=== PATIENT | female | born 1990 | race Caucasian/White ===

== ENCOUNTER 2019-02-05 19:40 | Emergency (ER) | payer SELFPAY ==
[2019-02-05] MEDS ORDERED: NA CHLORIDE 0.9% 1,000 ML ONE (20:42)
[2019-02-05 20:44] LABS: Absolute Lymphocytes (CBC) 3.5 K/uL (0.7-4.9); Basophils % 0.7 % (0-1.3); Hematocrit 43.3 % (36.0-45.0); MPV 7.4 fL (7.6-11.3); RBC Red Blood Cell Count 4.74 M/uL (3.86-4.86)
[2019-02-05] MEDS ORDERED: ONDANSETRON 4 MG/2 ML VIAL ONE (20:47)
[2019-02-05] MEDS ORDERED: FENTANYL CITR 100 MCG/2 ML ONE (20:47)
[2019-02-05 20:58] LABS: Potassium 3.8 mmol/L (3.5-5.1)
[2019-02-05] MEDS ORDERED: KETOROLAC 30 MG/ML INJ ONE (21:32)
[2019-02-05] MEDS ORDERED: LIDOCAINE VISCOUS 2% SOLN 15 ML UDC ONE (22:51)
[2019-02-05] MEDS ORDERED: dexAMETHasone 10 MG/ML VIAL ONE (22:51)
[2019-02-05] MEDS ORDERED: PANTOPRAZOLE 40 MG INJ ONE (22:51)
[2019-02-05] MEDS ORDERED: MAGNE/ALUM HYDROXD 30 ML UCUP ONE (22:51)
--- NOTE | 2019-02-05 22:51 | EDPHYS ---
Physician Documentation [facility] Name: Sallie Milner Age: 28 yrs Sex: Female : 1990 Arrival Date: 02/05/2019 Time: 19:41 Bed 7 Private MD: ED Physician Hari Rodriguez HPI: 02/05 20:05 This 28 yrs old Female presents to ER via Ambulatory with complaints of Sore cp Throat. 20:05 The patient presents with sore throat, dysphagia, of both solids and liquids. cp 20:05 The patient describes throat pain as constant. cp 20:05 Onset: The symptoms/episode began/occurred intermittent for past several months, worse cp over past 2 days. Patient reports completing several prescriptions for antibiotics. Patient reports she was diagnosed with Romo's esophagus in the past, but has not been able to f/u due to lack of insurance. 20:05 Associated signs and symptoms: Pertinent positives: dysphagia, Sore throat Pertinent cp negatives chest pain, cough, earache, fever, vomiting. 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 - Social history:: Smoking status: Patient uses tobacco products, smokes one pack cigarettes per day. - Ebola Screening: : No symptoms or risks identified at this time. ROS: 20:10 Constitutional: Negative for body aches, chills, fever, poor PO intake, weight loss. cp 20:10 Eyes: Negative for injury, pain, redness, and discharge. cp 20:10 ENT: Positive for difficulty swallowing, sore throat, Negative for drainage from ear(s), ear pain, difficulty handling secretions, hoarseness. 20:10 Neck: Negative for stiffness, swollen nodes. 20:10 Cardiovascular: Negative for chest pain, palpitations. 20:10 Respiratory: Negative for cough, shortness of breath, wheezing. 20:10 Abdomen/GI: Negative for abdominal pain, nausea, vomiting, and diarrhea. 20:10 Skin: Negative for rash. 20:10 Neuro: Negative for altered mental status, headache, weakness. 20:10 All other systems are negative. Exam: 20:20 Constitutional: The patient appears in no acute distress, alert, awake, non-toxic, well cp developed, well nourished. 20:20 Head/Face: Normocephalic, atraumatic. cp 20:20 Eyes: Periorbital structures: appear normal, Conjunctiva: normal, no exudate, no injection, Sclera: no appreciated abnormality, Lids and lashes: appear normal, bilaterally. 20:20 ENT: External ear(s): are unremarkable, Ear canal(s): are normal, clear, TM's: dullness, bilaterally, Nose: is normal, Mouth: Lips: moist, Oral mucosa: moist, Tongue: is normal, abscess, is not appreciated, Posterior pharynx: Airway: no evidence of obstruction, patent, Tonsils: with erythema, no enlargement, no exudate, Uvula: midline, swelling, is not appreciated, erythema, that is mild, exudate, is not appreciated. 20:20 Neck: ROM/movement: is normal, is supple, without pain, no range of motions limitations, no meningismus, no nuchal rigidity. 20:20 Chest/axilla: Inspection: normal, Palpation: is normal, no crepitus, no tenderness. 20:20 Cardiovascular: Rate: normal, Rhythm: regular, JVD: is not appreciated. 20:20 Respiratory: the patient does not display signs of respiratory distress, Respirations: normal, no use of accessory muscles, no retractions, no splinting, no tachypnea, labored breathing, is not present, Breath sounds: are clear throughout, no decreased breath sounds, no stridor, no wheezing. 20:20 Abdomen/GI: Inspection: abdomen appears normal, Bowel sounds: active, all quadrants, Palpation: abdomen is soft and non-tender, in all quadrants. 20:20 Skin: no rash present. Vital Signs: 20:20 BP 155 / 109; Pulse 87; Resp 18; Temp 98.3; Pulse Ox 97% on R/A; Weight 74.84 kg; ea Height 5 ft. (152.40 cm); Pain 9/10; 21:13 BP 129 / 112; Pulse 82; Resp 18; Pulse Ox 100% ; ea 22:30 BP 120 / 75; Pulse 80; Resp 18; Temp 97.8(TE); Pulse Ox 98% on R/A; ea 20:20 Body Mass Index 32.22 (74.84 kg, 152.40 cm) ea MDM: 19:48 Patient medically screened. cp 21:00 Differential diagnosis: apthous stomatitis, josselyn-marley virus, gastroesophageal reflux cp disease, group A strep tonsillitis, victor m's angina, mononucleosis, peritonsillar abscess pharyngitis, retropharyngeal abcess. 22:50 Data reviewed: vital signs, nurses notes, lab test result(s), radiologic studies, CT cp scan. 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 22:50 Response to treatment: the patient's symptoms have mildly improved after treatment, and cp as a result, I will discharge patient. 22:50 ED course: VSS. Discussed CT report noting lymphoid hyperplasia. Will discharge to home cp and recommend GI f/u. 02/05 20:01 Order name: Strep; Complete Time: 20:23 cp 02/05 20:23 Interpretation: Reviewed. cp 02/05 20:24 Order name: Throat Culture EDMS 02/05 20:29 Order name: [place] Screen Profile; Complete Time: 21:48 cp 02/05 20:29 Order name: CBC with Diff; Complete Time: 21:48 cp 02/05 21:48 Interpretation: Normal except: MPV 7.4. cp 02/05 20:29 Order name: BMP; Complete Time: 21:48 cp 02/05 21:48 Interpretation: Normal except: CL 108; GFR 79. cp 02/05 20:29 Order name: CT Soft Tissue Neck W/contr; Complete Time: 21:20 cp 02/05 20:29 Order name: IV; Complete Time: 20:38 cp 02/05 22:40 Order name: PO challenge; Complete Time: 23:01 cp Administered Medications: 20:54 Drug: NS 0.9% 1000 ml Route: IV; Rate: 1 bolus; Site: right antecubital; ea 23:00 Follow up: Response: No adverse reaction; IV Status: Completed infusion; IV Intake: ea 1000ml 20:54 Drug: Zofran 4 mg Route: IVP; Site: right antecubital; ea 21:30 Follow up: Response: No adverse reaction; Marked relief of symptoms ea 20:58 Drug: fentaNYL (PF) 25 mcg Route: IVP; Site: right antecubital; ea 21:30 Follow up: Response: No adverse reaction; Pain is decreased ea 21:30 Follow up: Response: RASS: Alert and Calm (0) ea 21:37 Drug: TORadol - Ketorolac 15 mg Route: IVP; Site: right antecubital; ea 22:32 Follow up: Response: No adverse reaction; Pain is decreased ea 22:50 Drug: ProTONIX 40 mg Route: IVP; Site: right antecubital; ea 23:08 Follow up: Response: No adverse reaction ea 22:50 Drug: GI Cocktail without - (Maalox Suspension 30 ml, Lidocaine Liquid 2 % 15 ea ml) Route: PO; 23:09 Follow up: Response: No adverse reaction ea 22:52 Drug: Decadron - Dexamethasone 10 mg Route: IVP; Site: right antecubital; ea 23:08 Follow up: Response: No adverse reaction ea Disposition: 02/06 04:19 Co-signature as Attending Physician, Hari Rodriguez MD I agree with the assessment and kdr plan of care. Disposition: 02/05/19 22:50 Discharged to Home. Impression: Dysphagia, unspecified, Pharyngitis. - Condition is Stable. - Discharge Instructions: Dysphagia, Upper Endoscopy, Barium Swallow. - Prescriptions for Protonix 40 mg Oral Tablet - take 1 tablet by ORAL route once daily; 30 tablet. Medrol (Micha) 4 mg Oral Tablets, Dose Pack - take 1 tablet by ORAL route as directed - follow package instructions; 1 packet. acetaminophen- codeine 120-12 mg/5 mL Oral Suspension - take 10 milliliters by ORAL route every 8 hours As needed; 150 milliliter. - Medication Reconciliation Form, Thank You Letter, Antibiotic Education, Prescription Opioid Use form. - Follow up: Obdulio Ziegler MD; When: 2 - 3 days; Reason: Recheck today's complaints. - Problem is an ongoing problem. - Symptoms have improved. Signatures: Dispatcher [employer] EDMS Hari Rodriguez MD MD [facility] Markus Stephens PA PA cp Antunez, Elena, RN RN ea Corrections: (The following items were deleted from the chart) 02/05 22:31 20:30 Urine Dipstick-Ancillary ordered. oz alejo 20:30 Urine Test ordered. [facility] 23:13 22:50 02/05/2019 22:50 Discharged to Home. Impression: Dysphagia, unspecified; ea Pharyngitis. Condition is Stable. Forms are Medication Reconciliation Form, Thank You Letter, Antibiotic Education, Prescription Opioid Use. Follow up: Obdulio Ziegler; When: 2 - 3 days; Reason: Recheck today's complaints. Problem is an ongoing problem. Symptoms have improved. cp 02/06 21:22 02/05 22:50 ED course: VSS. CT soft tissue neck negative for acute findings. Discussed cp noted nonspecific enlarged nodes and recommend GI f/u. cp
--- NOTE | 2019-02-05 22:51 | ER ---
Nurse's Notes [facility] Name: Sallie Milner Age: 28 yrs Sex: Female : 1990 Arrival Date: 02/05/2019 Time: 19:41 Bed 7 Private MD: Diagnosis: Dysphagia, unspecified;Pharyngitis Presentation: 02/05 20:10 Presenting complaint: Patient states: Pt reports she has had a sore throat on and off ea for the last several months and has been prescribed several different antibiotics without resolution of symptoms. Pt reports she has a history of Johnathan's esophagus. Pt states "I feel like it may be getting worse". Transition of care: patient was not received from another setting of care. Onset of symptoms was February 05, 2019. Risk Assessment: Do you want to hurt yourself or someone else? Patient reports no desire to harm self or others. Initial Sepsis Screen: Does the patient meet any 2 criteria? No. Patient's initial sepsis screen is negative. Does the patient have a suspected source of infection? No. Patient's initial sepsis screen is negative. Care prior to arrival: None. 20:10 Method Of Arrival: Ambulatory ea 20:10 Acuity: JOHNY 3 ea Triage Assessment: 20:21 General: Appears uncomfortable, Behavior is calm, cooperative, appropriate for age. ea Pain: Complains of pain in throat. EENT: Reports pain when swallowing. 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 - Social history:: Smoking status: Patient uses tobacco products, smokes one pack cigarettes per day. - Ebola Screening: : No symptoms or risks identified at this time. Screenin:17 Abuse screen: Denies threats or abuse. Nutritional screening: No deficits noted. ea Tuberculosis screening: No symptoms or risk factors identified. Fall Risk None identified. Assessment: 20:22 General: Appears uncomfortable, Behavior is agitated. Pain: Complains of pain in ea throat. Neuro: Level of Consciousness is awake, alert, obeys commands, Oriented to person, place, time, situation. Cardiovascular: Patient's skin is warm and dry. Respiratory: Airway is patent Respiratory effort is even, unlabored, Respiratory pattern is regular, symmetrical. EENT: Reports difficulty swallowing. 21:13 Reassessment: Patient and/or family updated on plan of care and expected duration. Pain ea level reassessed. Patient is alert, oriented x 3, equal unlabored respirations, skin warm/dry/pink. Pt taken to CT. 22:30 Reassessment: Patient and/or family updated on plan of care and expected duration. Pain ea level reassessed. Patient is alert, oriented x 3, equal unlabored respirations, skin warm/dry/pink. 23:10 Reassessment: Patient and/or family updated on plan of care and expected duration. Pain ea level reassessed. Patient is alert, oriented x 3, equal unlabored respirations, skin warm/dry/pink. Discharge instruction given to patient, verbalized the understanding of instruction. Pt left ED ambulatory accompanied by family, pt tolerating well. Vital Signs: 20:20 BP 155 / 109; Pulse 87; Resp 18; Temp 98.3; Pulse Ox 97% on R/A; Weight 74.84 kg; ea Height 5 ft. (152.40 cm); Pain 9/10; 21:13 BP 129 / 112; Pulse 82; Resp 18; Pulse Ox 100% ; ea 22:30 BP 120 / 75; Pulse 80; Resp 18; Temp 97.8(TE); Pulse Ox 98% on R/A; ea 20:20 Body Mass Index 32.22 (74.84 kg, 152.40 cm) ea ED Course: 19:41 Patient arrived in ED. ds1 19:48 Markus Stephens PA is PHCP. cp 19:48 Hari Rodriguez MD is Attending Physician. cp 20:16 Triage completed. ea 20:17 Patient has correct armband on for positive identification. Bed in low position. Call ea light in reach. 20:17 Arm band placed on right wrist. Patient placed in an exam room, on a stretcher, on ea pulse oximetry. 20:34 Inserted saline lock: 20 gauge in right antecubital area, using aseptic technique. ea Blood collected. 20:37 Radiology exam delayed due to lab results not completed at this time. (BUN/Creatinine) 2 IV insertion attempt and/or patient not having appropriate IV at this time. 21:03 Shruthi Swanson, RN is Primary Nurse. ea 21:18 CT Soft Tissue Neck W/contr In Process Unspecified. EDMS 22:48 Obdulio Ziegler MD is Referral Physician. cp 23:09 No provider procedures requiring assistance completed. IV discontinued, intact, ea bleeding controlled, No redness/swelling at site. Pressure dressing applied. Administered Medications: 20:54 Drug: NS 0.9% 1000 ml Route: IV; Rate: 1 bolus; Site: right antecubital; ea 23:00 Follow up: Response: No adverse reaction; IV Status: Completed infusion; IV Intake: ea 1000ml 20:54 Drug: Zofran 4 mg Route: IVP; Site: right antecubital; ea 21:30 Follow up: Response: No adverse reaction; Marked relief of symptoms ea 20:58 Drug: fentaNYL (PF) 25 mcg Route: IVP; Site: right antecubital; ea 21:30 Follow up: Response: No adverse reaction; Pain is decreased ea 21:30 Follow up: Response: RASS: Alert and Calm (0) ea 21:37 Drug: TORadol - Ketorolac 15 mg Route: IVP; Site: right antecubital; ea 22:32 Follow up: Response: No adverse reaction; Pain is decreased ea 22:50 Drug: ProTONIX 40 mg Route: IVP; Site: right antecubital; ea 23:08 Follow up: Response: No adverse reaction ea 22:50 Drug: GI Cocktail without - (Maalox Suspension 30 ml, Lidocaine Liquid 2 % 15 ea ml) Route: PO; 23:09 Follow up: Response: No adverse reaction ea 22:52 Drug: Decadron - Dexamethasone 10 mg Route: IVP; Site: right antecubital; ea 23:08 Follow up: Response: No adverse reaction ea Intake: 23:00 IV: 1000ml; Total: 1000ml. ea Outcome: 22:50 Discharge ordered by . cp 23:09 Discharged to home ambulatory, with family. ea 23:09 Condition: stable 23:09 Discharge instructions given to patient, Instructed on discharge instructions, follow up and referral plans. medication usage, Demonstrated understanding of instructions, follow-up care, medications, Prescriptions given X 3. 23:13 Patient left the ED. ea Signatures: Dispatcher [employer] EDMS Segun Sarah ds1 Markus Stephens PA PA cp McGuire, Victoria 2 Shruthi Swanson, RN RN sapna
[2019-02-05 23:21] VITALS: BP 120/75; TEMP 97.8; O2SAT 98
--- NOTE | 2019-02-06 10:29 | RAD REPORT ---
EXAM DESCRIPTION: CT - Soft Tissue Neck W/Contr - 02/06/2019 2:06 am CLINICAL HISTORY: The patient is 28 years old and is Female; dysphagia; Sore throat TECHNIQUE: Axial computed tomography images of the neck with intravenous contrast. Sagittal and co bib reformatted images were created and reviewed. This CT exam was performed using one or more of the following dose reduction techniques: automated exposure control, adjustment of the mA and/or k V according to patient size, and/or use of iterative reconstruction technique. COMPARISON: None. FINDINGS: BRAIN: Intracranial compartment demonstrates no mass effect or herniation. NASOPHARYNX: Prominence of the nasopharyngeal mucosa. OROPHARYNX: Prominence of the lingual tonsils. Symmetrical prominence of the tonsillar pillars. Otherwise ventricular no organized fluid co llection. Mild nonspecific thickening of the soft palate/uvula. HYPOPHARYNX: Unremarkable. LARYNX: Unremarkable. Normal epiglottis. TRACHEA: Unremarkable. RETROPHARYNGEAL SPACE: Unremarkable. SUBMANDIBULAR/PAROTID GLANDS: Unremarkable. Glands are normal in size. THYROID: Visualized thyroid is within normal limits. BONES/JOINTS: Reversal of cervical lordosis centered at C5. No acute fracture. SOFT TISSUES: Unremarkable. VASCULATURE: Vascular structures are within normal limits. LYMPH NODES: Nonenlarged multistation cervical lymph nodes. ORBITS: Globes and orbits are within normal limits. LUNG APICES: Apical lung zones are clear. IMPRESSION: 1. No mucosal abnormality of the soft tissue neck. 2. Findings suggestive of lymphoid hyperplasia. Electronically signed by: Meño Noble DO 02/05/2019 9:51 PM CDT Due to temporary technical issues with the PACS/Fluency reporting system, reports are being signed by the in house radiologist as a courtesy to ensure prompt reporting. The interpreting radiologist is f ully responsible for the content of the report.
== END 2019-02-05 23:13 | disposition home or self-care (01) ==
LOC: ER 19:40
DX: J02.9 Acute pharyngitis, unspecified (principal); F17.210 Nicotine dependence, cigarettes, uncomplicated
CPT/HCPCS: 36415; 70491; 80048; 85025; 86308; 87070; 87081; 96361; 96374; 96375; 99284; C9113; J1100; J2405; J3010; J7030; Q9967